=== PATIENT | male | born 1995 | race African-American/Black ===

== ENCOUNTER 2021-01-05 10:59 | Outpatient (CLI) | payer SELFPAY ==
[2021-01-05 18:02] LABS: SARS-CoV-2 PCR by NAA Not Detected (NotDetected)
== END 2021-01-05 11:00 | disposition home or self-care (01) ==
LOC: LABBT 10:59
PROVIDERS: ATTEND Orthopaedic Surgery
DX: Z01.812 Encounter for preprocedural laboratory examination (principal); S93.326A Dislocation of tarsometatarsal joint of unspecified foot, initial encounter; Z20.822 Contact with and (suspected) exposure to COVID-19
CPT/HCPCS: 87635; U0003; U0005